=== PATIENT | female | born 1960 | race African-American/Black ===

== ENCOUNTER 2017-08-20 11:54 | Inpatient (IN) | payer MEDICAID ==
[~2017-08-20] VITALS: Ht 162.6 cm; Wt 65.8 kg
[~2017-08-20 11:54] MED LIST: INSULIN; METF-416 PO
[2017-08-20] MEDS ORDERED: NITROGLYCERIN OINT 1GM/INCH UDPKT TD STA (12:24)
[2017-08-20] MEDS ORDERED: ONDANSETRON HCL 4MG/2ML INJ IV STA (12:24)
[2017-08-20] MEDS ORDERED: MORPHINE SULFATE 4 MG/ML CPJ (NOT FOR IM USE) IV STA (12:24)
[2017-08-20] MEDS ORDERED: ASPIRIN 81MG TABLET PO STA (12:24)
[2017-08-20 12:31] LABS: BASOPHILS % 0.6 % (0.0-2.0); EOSINOPHILS % 2.4 % (0.0-5.0); HEMATOCRIT. 37.2 % (36.0-48.0); HEMOGLOBIN. 11.9 g/dL (12.0-16.0); LYMPHOCYTES % 46.9 % (20.0-50.0); MEAN CORPUSCULAR HEMOGLOBIN 23.1 pg (28.0-32.0); MEAN CORPUSCULAR VOLUME 71.9 fL (81.0-99.0); MEAN PLATELET VOLUME 7.9 fl (7.4-10.4); NEUTROPHILS % 42.1 % (40.0-76.0); PLATELET 228 x1000/uL (130-400); RED BLOOD CELL COUNT 5.17 mill/uL (4.2-5.4)
[2017-08-20 12:39] LABS: PARTIAL THROMBOPLASTIN TIME 25.7 sec (23.4-31.0)
[2017-08-20 12:47] LABS: CHLORIDE 102 mEq/L (98-107); CREATINE KINASE 70 IU/L (26-192)
[2017-08-20 12:52] LABS: CREATINE KINASE MB FRACTION 1.1 ng/mL (0.5-3.6)
[2017-08-20] MEDS ORDERED: HYDROCODONE/ACETAMINOPHEN 5/325MG TABLET PO PRN (13:00)
[2017-08-20] MEDS ORDERED: LORAZEPAM 2MG/ML CPJ IV PRN (13:00)
[2017-08-20] MEDS ORDERED: IPRATROPIUM/ALBUTEROL 0.5-3(2.5)MG/3ML NEB INH PRN (13:00)
[2017-08-20] MEDS ORDERED: MORPHINE SULFATE 4 MG/ML CPJ (NOT FOR IM USE) IV PRN (13:00)
[2017-08-20] MEDS ORDERED: ONDANSETRON HCL 4MG/2ML INJ IV PRN (13:00)
[2017-08-20] MEDS ORDERED: MAGNESIUM/ALUMINUM HYDROXIDE/SIMETHICONE 30ML UDC PO PRN (13:00)
[2017-08-20] MEDS ORDERED: NA PHOS,M-B/NA PHOS,DI-BA ENEMA 118ML PR PRN (13:00)
[2017-08-20] MEDS ORDERED: CLONIDINE 0.1MG TABLET PO PRN (13:00)
[2017-08-20] MEDS ORDERED: DIPHENHYDRAMINE 50MG/ML VIAL IV PRN (13:00)
[2017-08-20] MEDS ORDERED: GUAIFENESIN 200MG/10ML SUGAR FREE UDC PO PRN (13:00)
[2017-08-20] MEDS ORDERED: ACETAMINOPHEN 325MG TABLET PO PRN (13:00)
[2017-08-20] MEDS ORDERED: DOCUSATE SODIUM 100MG CAPSULE PO PRN (13:00)
[2017-08-20] MEDS ORDERED: INSULIN REGULAR (HUMULIN R) 300UNITS/3ML IV ONE (13:15)
[2017-08-20 16:25] LABS: CHLORIDE 103 mEq/L (98-107)
[2017-08-20] MEDS ORDERED: LISINOPRIL 5MG TABLET PO SCH (18:00)
[2017-08-20] MEDS ORDERED: ENOXAPARIN 40MG/0.4ML SYR SUBCUT SCH (20:00)
[2017-08-20 22:30] VITALS: BP 117/72
[2017-08-20] MEDS: AMLODIPINE 2.5MG TABLET PO SCH (22:30)
[2017-08-20 23:05] VITALS: BP 117/72
[2017-08-20] MEDS ORDERED: PIRO20CA PO (23:38)
[2017-08-20] MEDS ORDERED: PRAV40TA PO (23:38)
[2017-08-20] MEDS ORDERED: SITA100T11 PO (23:38)
[2017-08-20] MEDS ORDERED: GLIP5TAB12 PO (23:38)
[2017-08-20] MEDS ORDERED: OXYB5TAB11 PO (23:38)
[2017-08-20] MEDS ORDERED: SERT50TA PO (23:38)
[2017-08-20] MEDS ORDERED: THIA100T13 PO (23:38)
[2017-08-20] MEDS ORDERED: MEGE40TA27 * (23:38)
[2017-08-20] MEDS ORDERED: BUSP30TA2 PO (23:38)
[2017-08-20] MEDS ORDERED: INSU100I28 SQ (23:41)
[2017-08-21] VITALS: BP 106/76
[2017-08-21 04:00] VITALS: BP 104/71
[2017-08-21 07:02] LABS: BASOPHILS % 0.4 % (0.0-2.0); HEMATOCRIT. 36.9 % (36.0-48.0); HEMOGLOBIN. 11.7 g/dL (12.0-16.0); LYMPHOCYTES % 52.1 % (20.0-50.0); MEAN CORPUSCULAR HEMOGLOBIN 22.7 pg (28.0-32.0); MEAN CORPUSCULAR VOLUME 71.7 fL (81.0-99.0); MEAN PLATELET VOLUME 8.5 fl (7.4-10.4); MONOCYTES % 9.5 % (2.0-8.0); PLATELET 238 x1000/uL (130-400); RED BLOOD CELL COUNT 5.16 mill/uL (4.2-5.4); RED CELL DISTRIBUTION WIDTH 14.8 % (11.6-14.6)
[2017-08-21 07:14] LABS: CHLORIDE 100 mEq/L (98-107)
[2017-08-21 07:16] LABS: *AMPHETAMINES SCREEN URINE NEGATIVE (NEGATIVE); *BARBITURATES SCREEN URINE NEGATIVE (NEGATIVE); *BENZODIAZEPINES SCREEN URINE NEGATIVE (NEGATIVE); *COCAINE SCREEN URINE NEGATIVE (NEGATIVE); CANNABINOID URINE SCREEN NEGATIVE (NEGATIVE); METHADONE URINE SCREEN NEGATIVE (NEGATIVE); OPIATES URINE SCREEN PRESUMTIVE POSITIVE (NEGATIVE); PHENCYCLIDINE URINE SCREEN NEGATIVE (NEGATIVE)
[2017-08-21 07:21] LABS: HDL CHOLESTEROL 47 mg/dL (40-59); LDL CHOLESTEROL 124 mg/dL (5-100)
[2017-08-21] MEDS: AMLODIPINE 2.5MG TABLET PO SCH (08:53)
[2017-08-21] MEDS ORDERED: ASPIRIN 81MG EC TABLET PO SCH (09:00)
[2017-08-21] MEDS ORDERED: INFLUENZA VIRUS VACCINE(AFLURIA) 0.5ML SYR IM ONE (10:00)
[2017-08-21] MEDS ORDERED: PNEUMOCOCCAL 23-VAL P-SAC VAC 0.5 ML IM ONE (11:00)
[2017-08-21 11:07] VITALS: BP 117/80
== END 2017-08-21 14:24 | disposition home or self-care (01) | DRG 203 ==
LOC: ER 12:03 → EDBEDREQTM 12:30 → EDBEDREQ 12:30 → 5WST 12:55 → ENRESERV 21:05
PROVIDERS: ADMIT Internal Medicine; ATTEND Internal Medicine
DX: M94.0 Chondrocostal junction syndrome [Tietze] (principal); E11.65 Type 2 diabetes mellitus with hyperglycemia; I10 Essential (primary) hypertension; R07.9 Chest pain, unspecified; I25.10 Atherosclerotic heart disease of native coronary artery without angina pectoris; F17.200 Nicotine dependence, unspecified, uncomplicated; F20.9 Schizophrenia, unspecified; J44.9 Chronic obstructive pulmonary disease, unspecified; Z79.84 Long term (current) use of oral hypoglycemic drugs; Z79.899 Other long term (current) drug therapy; Z71.6 Tobacco abuse counseling
CPT/HCPCS: 36415; 71045; 80048; 80061; 80305; 82550; 82553; 82962; 83036; 83735; 83880; 84443; 84484; 90686; 90732; 93005; 93306; 96374; 96375; 99291; J1650; J1815; J2060; J2270; J2405

== ENCOUNTER 2018-03-23 07:57 | Emergency (ER) | payer MEDICAID ==
[~2018-03-23] VITALS: Ht 170.2 cm; Wt 68.2 kg
[~2018-03-23 07:57] MED LIST changes: +BUSP30TA2 PO; +GLIP5TAB12 PO; +INSU100I28 SQ; -INSULIN; +MEGE40TA27 *; -METF-416 PO; +METF10004 PO; +OXYB5TAB11 PO; +PIRO20CA PO; +PRAV40TA PO; +SERT50TA PO; +SITA100T11 PO; +THIA100T13 PO
[2018-03-23] MEDS ORDERED: SODIUM CHLORIDE 0.9% 1,000 ML IV ONE ×2 (08:54→12:15)
[2018-03-23] MEDS ORDERED: KETOROLAC 30MG/ML VIAL IV STA (08:54)
[2018-03-23 09:41] LABS: BASOPHILS % 0.5 % (0.0-2.0); EOSINOPHILS % 2.2 % (0.0-5.0); HEMATOCRIT. 35.7 % (36.0-48.0); HEMOGLOBIN. 11.3 g/dL (12.0-16.0); LYMPHOCYTES % 38.8 % (20.0-50.0); MEAN CORPUSCULAR HEMOGLOBIN 22.6 pg (28.0-32.0); MEAN CORPUSCULAR VOLUME 71.2 fL (81.0-99.0); MEAN PLATELET VOLUME 8.3 fl (7.4-10.4); MONOCYTES % 6.4 % (2.0-8.0); NEUTROPHILS % 52.1 % (40.0-76.0); PLATELET 221 x1000/uL (130-400); RED BLOOD CELL COUNT 5.02 mill/uL (4.2-5.4); RED CELL DISTRIBUTION WIDTH 14.5 % (11.6-14.6)
[2018-03-23 09:44] LABS: CHLORIDE 101 mEq/L (98-107)
[2018-03-23 09:50] LABS: PHOSPHORUS 3.6 mg/dL (2.5-4.9)
[2018-03-23 09:58] LABS: CLARITY URINE CLEAR (CLEAR); COLOR URINE YELLOW (YELLOW); KETONES URINE NEGATIVE (NEGATIVE); LEUKOCYTE ESTERASE URINE TRACE (NEGATIVE); NITRITE URINE NEGATIVE (NEGATIVE); OCCULT BLOOD URINE TRACE (NEGATIVE); PROTEIN URINE NEGATIVE (NEGATIVE); SPECIFIC GRAVITY URINE 1.024 (1.005-1.030); UROBILINOGEN URINE 0.2 E.U./dL (0.2-1.0)
[2018-03-23] MEDS ORDERED: INSULIN REGULAR (HUMULIN R) 300UNITS/3ML SUBCUT ONE (10:45)
[2018-03-23 14:00] VITALS: BP 138/82
== END 2018-03-23 14:50 | disposition home or self-care (01) ==
LOC: ER 08:23
DX: E11.65 Type 2 diabetes mellitus with hyperglycemia (principal); F17.200 Nicotine dependence, unspecified, uncomplicated; N39.0 Urinary tract infection, site not specified; Z79.4 Long term (current) use of insulin; Z79.899 Other long term (current) drug therapy
CPT/HCPCS: 36415; 80053; 81003; 82962; 83690; 83735; 84100; 85025; 85610; 87077; 87086; 87186; 96361; 96372; 96374; 99285; J1815; J1885; J7030; Z7610

== ENCOUNTER 2018-04-27 12:42 | Inpatient (IN) | payer MEDICAID ==
[~2018-04-27] VITALS: Ht 167.6 cm; Wt 68.0 kg
[2018-04-27] MEDS ORDERED: SODIUM CHLORIDE 0.9% 1,000 ML IV ONE (14:19)
[2018-04-27 15:15] LABS: HEMATOCRIT. 42.5 % (36.0-48.0); HEMOGLOBIN. 13.4 g/dL (12.0-16.0); PLATELET 191 x1000/uL (130-400); RED BLOOD CELL COUNT 5.82 mill/uL (4.2-5.4); RED CELL DISTRIBUTION WIDTH 14.8 % (11.6-14.6)
[2018-04-27 15:19] LABS: CHLORIDE 90 mEq/L (98-107); INR 1.3; PROTHROMBIN TIME 13.4 sec (9.1-11.1)
[2018-04-27 15:27] LABS: ETHANOL BLOOD < 10 mg/dL
[2018-04-27 15:56] LABS: PLATELET ESTIMATE NORMAL
[2018-04-27] MEDS ORDERED: SODIUM CHLORIDE 0.9% 1000ML BAG (SEPSIS BOLUS) IV ONE (16:45)
[2018-04-27] MEDS ORDERED: VANCOMYCIN 1 G PREMIX 200 ML IV ONE (16:45)
[2018-04-27] MEDS ORDERED: PIPERACILLIN/TAZ 3.375G PREMIX 50 ML IV ONE (16:45)
[2018-04-27] MEDS ORDERED: INSULIN REGULAR (DRIP) 100 UNITS in SODIUM CHLORIDE 0.9% 99 ML IV NR ×2 (16:46→17:15)
[2018-04-27 16:47] LABS: CLARITY URINE CLOUDY (CLEAR); COLOR URINE YELLOW (YELLOW); KETONES URINE 2+ (NEGATIVE); LEUKOCYTE ESTERASE URINE NEGATIVE (NEGATIVE); NITRITE URINE NEGATIVE (NEGATIVE); OCCULT BLOOD URINE 2+ (NEGATIVE); PROTEIN URINE 2+ (NEGATIVE); SPECIFIC GRAVITY URINE 1.026 (1.005-1.030); UROBILINOGEN URINE 0.2 E.U./dL (0.2-1.0)
[2018-04-27 17:06] LABS: PHOSPHORUS 2.4 mg/dL (2.5-4.9)
[2018-04-27 18:52] LABS: BG BASE EXCESS -10.9 mmol/L (-2.0-2.0); BG CARBOXYHEMOGLOBIN 0.9 % (0.5-1.5); BG DEOXYHEMOGLOBIN 6.6 % (0.0-5.0); BG FRACTION INSPIRED OXYGEN 21; BG HCO3 ACT 12.4 mmol/L (22.0-26.0); BG METHEMOGLOBIN 0.6 % (0.0-1.5); BG OXYGEN SATURATION 93.3 % (92.0-98.5); BG OXYHEMOGLOBIN 91.9 % (94.0-97.0); BG PCO2 22.1 mmHg (35.0-45.0); BG PH 7.366 (7.350-7.450); BG PO2 66.6 mmHg (75.0-100.0); BG SAMPLE SITE RIGHT BRACHIAL; BG VENT MODE T-TUBE
[2018-04-27] MEDS: SODIUM CHLORIDE 0.9% 1,000 ML IV SCH (19:56)
[2018-04-27] MEDS ORDERED: VANCOMYCIN 1 G PREMIX 200 ML IV SCH (20:00)
[2018-04-27] MEDS ORDERED: INSULIN REGULAR (DRIP) 100 UNITS in SODIUM CHLORIDE 0.9% 100 ML IV ONE (20:00)
[2018-04-27] MEDS ORDERED: DEXTROSE 50% WATER 50ML SYRINGE IV PRN ×2 (22:30)
[2018-04-27 23:00] VITALS: BP 110/66
[2018-04-27] MEDS: BLOOD SUGAR DIAGNOSTIC STRIP TEST SCH (23:00)
[2018-04-27] MEDS ORDERED: INSULIN REGULAR (DRIP) 100 UNITS in SODIUM CHLORIDE 0.9% 100 ML IV SCH (23:00)
[2018-04-28] VITALS (32 sets, daily range): BP systolic 101–211; BP diastolic 52–106
[2018-04-28] MEDS: BLOOD SUGAR DIAGNOSTIC STRIP TEST SCH ×15 (01:00→20:05)
[2018-04-28] MEDS: PIPERACILLIN/TAZ 3.375G PREMIX 50 ML IV SCH ×5 (02:54→23:58)
[2018-04-28] MEDS: SODIUM CHLORIDE 0.9% 1,000 ML IV SCH ×5 (02:54→20:10)
[2018-04-28] MEDS ORDERED: SODIUM CHLORIDE 0.9% 1,000 ML IV SCH (03:15)
[2018-04-28] MEDS: DIPHENHYDRAMINE 50MG/ML VIAL IV PRN ×2 (04:08→20:36)
[2018-04-28] MEDS: INSULIN REGULAR (DRIP) 100 UNITS in SODIUM CHLORIDE 0.9% 99 ML IV SCH ×2 (04:15→07:18)
[2018-04-28] MEDS: PANTOPRAZOLE SODIUM 40 MG/VIAL IV SCH (04:23)
[2018-04-28] MEDS: DEXT 5%/0.45% NACL 1000ML 1,000 ML IV SCH ×2 (04:24→08:15)
[2018-04-28] MEDS: LORAZEPAM 2MG/ML CPJ IV PRN ×4 (06:08→21:54)
[2018-04-28 06:42] LABS: PHOSPHORUS 1.4 mg/dL (2.5-4.9)
[2018-04-28 07:25] LABS: HEMATOCRIT. 36.1 % (36.0-48.0); HEMOGLOBIN. 11.9 g/dL (12.0-16.0); MEAN CORPUSCULAR VOLUME 70.1 fL (81.0-99.0); MEAN PLATELET VOLUME 9.2 fl (7.4-10.4); PLATELET 172 x1000/uL (130-400); RED BLOOD CELL COUNT 5.16 mill/uL (4.2-5.4); RED CELL DISTRIBUTION WIDTH 14.5 % (11.6-14.6)
[2018-04-28 09:03] LABS: *AMPHETAMINES SCREEN URINE NEGATIVE (NEGATIVE); *BARBITURATES SCREEN URINE NEGATIVE (NEGATIVE); *BENZODIAZEPINES SCREEN URINE NEGATIVE (NEGATIVE); *COCAINE SCREEN URINE NEGATIVE (NEGATIVE); CANNABINOID URINE SCREEN NEGATIVE (NEGATIVE); METHADONE URINE SCREEN NEGATIVE (NEGATIVE)
[2018-04-28 09:04] LABS: OPIATES URINE SCREEN NEGATIVE (NEGATIVE); PHENCYCLIDINE URINE SCREEN NEGATIVE (NEGATIVE)
[2018-04-28] MEDS ORDERED: VANCOMYCIN 1 G PREMIX 200 ML IV SCH (10:00)
[2018-04-28 10:57] LABS: PLATELET ESTIMATE NORMAL
[2018-04-28] MEDS ORDERED: DEXTROSE 50% WATER 50ML SYRINGE IV PRN (13:30)
[2018-04-28] MEDS: GENTAMICIN 120MG PREMIX 100 ML IV SCH (13:53)
[2018-04-28] MEDS: INSULIN LISPRO 100 UNITS/ML SUBCUT SCH ×3 (13:54→20:26)
[2018-04-28] MEDS ORDERED: POTASSIUM PHOS,M-BASIC-D-BASIC 30 MMOL in DEXT 5% WATER 500 ML IV NR (14:30)
[2018-04-28] MEDS: INSULIN GLARGINE UD 100 UNITS/ML SYR SUBCUT SCH (15:28)
[2018-04-28] MEDS: METOPROLOL TARTRATE 25MG TABLET PO SCH (20:07)
[2018-04-28 20:23] LABS: T4 FREE 1.22 ng/dL (0.76-1.46)
[2018-04-28] MEDS ORDERED: KCL 20MEQ/100ML PREMIX 100 ML IV NR (21:00)
[2018-04-28] MEDS ORDERED: HALOPERIDOL LACTATE 5MG/ML VIAL IM PRN (22:00)
[2018-04-28] MEDS: HALOPERIDOL LACTATE 5MG/ML VIAL IM PRN (22:25)
[2018-04-29] VITALS (14 sets, daily range): BP systolic 109–207; BP diastolic 65–109
[2018-04-29] MEDS: BLOOD SUGAR DIAGNOSTIC STRIP TEST SCH ×6 (01:30→21:34)
[2018-04-29] MEDS: GENTAMICIN 120MG PREMIX 100 ML IV SCH (02:21)
[2018-04-29] MEDS: LORAZEPAM 2MG/ML CPJ IV PRN ×4 (02:22→22:13)
[2018-04-29] MEDS: SODIUM CHLORIDE 0.9% 1,000 ML IV SCH ×3 (02:34→17:45)
[2018-04-29] MEDS: DIPHENHYDRAMINE 50MG/ML VIAL IV PRN (02:38)
[2018-04-29] MEDS: INSULIN LISPRO 100 UNITS/ML SUBCUT SCH ×6 (02:39→21:30)
[2018-04-29] MEDS: PIPERACILLIN/TAZ 3.375G PREMIX 50 ML IV SCH ×3 (06:46→18:23)
[2018-04-29 07:18] LABS: BASOPHILS % 0.3 % (0.0-2.0); HEMATOCRIT. 31.4 % (36.0-48.0); HEMOGLOBIN. 10.2 g/dL (12.0-16.0); LYMPHOCYTES % 8.8 % (20.0-50.0); MEAN CORPUSCULAR HEMOGLOBIN 22.5 pg (28.0-32.0); MEAN CORPUSCULAR VOLUME 69.4 fL (81.0-99.0); MEAN PLATELET VOLUME 8.9 fl (7.4-10.4); NEUTROPHILS % 84.9 % (40.0-76.0); PLATELET 125 x1000/uL (130-400); RED BLOOD CELL COUNT 4.53 mill/uL (4.2-5.4); RED CELL DISTRIBUTION WIDTH 14.5 % (11.6-14.6)
[2018-04-29] MEDS: HALOPERIDOL LACTATE 5MG/ML VIAL IM PRN ×2 (07:43→13:26)
[2018-04-29 08:27] LABS: CHLORIDE 111 mEq/L (98-107)
[2018-04-29 08:35] LABS: PHOSPHORUS 1.9 mg/dL (2.5-4.9)
[2018-04-29] MEDS: METOPROLOL TARTRATE 25MG TABLET PO SCH ×2 (09:00→21:00)
[2018-04-29] MEDS: PANTOPRAZOLE SODIUM 40 MG/VIAL IV SCH (09:58)
[2018-04-29] MEDS: INSULIN GLARGINE UD 100 UNITS/ML SYR SUBCUT SCH (10:40)
[2018-04-29] MEDS: HYDRALAZINE 20MG/ML VIAL IV PRN (10:55)
[2018-04-29] MEDS ORDERED: POTASSIUM PHOS,M-BASIC-D-BASIC 20 MMOL in DEXT 5% WATER 243.3333 ML IV SCH (11:30)
[2018-04-29] MEDS ORDERED: THIAMINE HCL 100 MG in SODIUM CHLORIDE 0.9% 50 ML IV SCH (15:30)
[2018-04-29] MEDS: GENTAMICIN 100MG PREMIX 50 ML IV SCH (22:13)
[2018-04-30] VITALS (13 sets, daily range): BP systolic 128–176; BP diastolic 70–136
[2018-04-30 00:07] LABS: AMMONIA <10 uMol/L (<32)
[2018-04-30] MEDS: INSULIN LISPRO 100 UNITS/ML SUBCUT SCH ×6 (01:30→22:38)
[2018-04-30] MEDS: HALOPERIDOL LACTATE 5MG/ML VIAL IM PRN ×3 (01:33→14:10)
[2018-04-30] MEDS: BLOOD SUGAR DIAGNOSTIC STRIP TEST SCH ×6 (01:37→22:20)
[2018-04-30] MEDS: SODIUM CHLORIDE 0.9% 1,000 ML IV SCH ×3 (04:55→20:08)
[2018-04-30] MEDS: LORAZEPAM 2MG/ML CPJ IV PRN ×3 (06:24→18:53)
[2018-04-30] MEDS: DIPHENHYDRAMINE 50MG/ML VIAL IV PRN ×3 (08:18→18:53)
[2018-04-30] MEDS: ONDANSETRON HCL 4MG/2ML INJ IV PRN ×2 (08:18→13:13)
[2018-04-30] MEDS ORDERED: THIAMINE HCL 100MG TABLET PO SCH (09:00)
[2018-04-30] MEDS: METOPROLOL TARTRATE 25MG TABLET PO SCH ×2 (09:00→21:00)
[2018-04-30] MEDS: PANTOPRAZOLE SODIUM 40 MG/VIAL IV SCH (09:21)
[2018-04-30 09:41] LABS: HEMOGLOBIN. 11.2 g/dL (12.0-16.0); MEAN CORPUSCULAR HEMOGLOBIN 22.6 pg (28.0-32.0); MEAN CORPUSCULAR VOLUME 70.3 fL (81.0-99.0); MEAN PLATELET VOLUME 8.4 fl (7.4-10.4); PLATELET 101 x1000/uL (130-400); RED BLOOD CELL COUNT 4.98 mill/uL (4.2-5.4); RED CELL DISTRIBUTION WIDTH 15.1 % (11.6-14.6)
[2018-04-30 10:01] LABS: CHLORIDE 112 mEq/L (98-107)
[2018-04-30] MEDS: INSULIN GLARGINE UD 100 UNITS/ML SYR SUBCUT SCH (10:50)
[2018-04-30] MEDS: GENTAMICIN 100MG PREMIX 50 ML IV SCH (16:00)
[2018-04-30] MEDS ORDERED: POTASSIUM PHOS,M-BASIC-D-BASIC 30 MMOL in DEXT 5% WATER 500 ML IV NR (18:00)
[2018-04-30 20:57] LABS: BG BASE EXCESS -8.8 mmol/L (-2.0-2.0); BG CARBOXYHEMOGLOBIN 1.1 % (0.5-1.5); BG DEOXYHEMOGLOBIN 14.9 % (0.0-5.0); BG FRACTION INSPIRED OXYGEN 32; BG HCO3 ACT 16.5 mmol/L (22.0-26.0); BG METHEMOGLOBIN 0.2 % (0.0-1.5); BG OXYGEN SATURATION 84.9 % (92.0-98.5); BG OXYHEMOGLOBIN 83.8 % (94.0-97.0); BG PCO2 33.8 mmHg (35.0-45.0); BG PH 7.307 (7.350-7.450); BG PO2 50.9 mmHg (75.0-100.0); BG SAMPLE SITE RIGHT BRACHIAL; BG TOTAL HEMOGLOBIN 11.7 g/dL (12.0-18.0); BG VENT MODE NASAL CANNULA
[2018-04-30] MEDS ORDERED: RISPERIDONE 1MG TABLET PO SCH (21:00)
[2018-04-30] MEDS ORDERED: FUROSEMIDE 40MG/4ML VIAL IVP NR (21:15)
[2018-04-30 21:58] LABS: PLATELET ESTIMATE DECREASED
[2018-04-30] MEDS ORDERED: ENOXAPARIN 60MG/0.6ML SYR SUBCUT SCH (23:00)
[2018-04-30] MEDS ORDERED: VERAPAMIL HCL 2.5 MG/1 ML 2ML VIAL IV PRN (23:00)
[2018-05-01] VITALS (63 sets, daily range): BP systolic 66–162; BP diastolic 27–106
[2018-05-01] MEDS: IPRATROPIUM/ALBUTEROL 0.5-3(2.5)MG/3ML NEB HHN SCH ×2 (00:52→08:43)
[2018-05-01] MEDS: BLOOD SUGAR DIAGNOSTIC STRIP TEST SCH ×6 (01:30→21:08)
[2018-05-01] MEDS: INSULIN LISPRO 100 UNITS/ML SUBCUT SCH ×6 (02:43→21:12)
[2018-05-01] MEDS ORDERED: GENTAMICIN 100MG PREMIX 50 ML IV SCH (04:00)
[2018-05-01 06:23] LABS: HEMATOCRIT. 35.6 % (36.0-48.0); HEMOGLOBIN. 11.2 g/dL (12.0-16.0); MEAN CORPUSCULAR HEMOGLOBIN 22.7 pg (28.0-32.0); MEAN CORPUSCULAR VOLUME 71.9 fL (81.0-99.0); PLATELET 104 x1000/uL (130-400); RED BLOOD CELL COUNT 4.95 mill/uL (4.2-5.4); RED CELL DISTRIBUTION WIDTH 16.2 % (11.6-14.6)
[2018-05-01 06:56] LABS: PHOSPHORUS 8.6 mg/dL (2.5-4.9)
[2018-05-01 08:02] LABS: BG BASE EXCESS -8.3 mmol/L (-2.0-2.0); BG DEOXYHEMOGLOBIN 0.8 % (0.0-5.0); BG HCO3 ACT 25.3 mmol/L (22.0-26.0); BG METHEMOGLOBIN 0.3 % (0.0-1.5); BG OXYGEN SATURATION 99.2 % (92.0-98.5); BG OXYHEMOGLOBIN 97.9 % (94.0-97.0); BG PCO2 111.4 mmHg (35.0-45.0); BG PH 6.974 (7.350-7.450); BG PO2 169.8 mmHg (75.0-100.0); BG SAMPLE SITE RIGHT BRACHIAL; BG TOTAL HEMOGLOBIN 11.7 g/dL (12.0-18.0); BG VENT MODE MASK - SIMPLE
[2018-05-01] MEDS ORDERED: SODIUM BICARBONATE 8.4% 1 MEQ/ML 50ML SYR IV ONE (08:27)
[2018-05-01] MEDS ORDERED: SODIUM BICARBONATE 8.4% 1 MEQ/ML 50ML SYR IV SCH (08:30)
[2018-05-01] MEDS: METOPROLOL TARTRATE 25MG TABLET PO SCH ×2 (09:00→20:44)
[2018-05-01] MEDS: SODIUM CHLORIDE 0.9% 1,000 ML IV SCH ×2 (09:22→12:22)
[2018-05-01 10:00] LABS: BG BASE EXCESS -3.9 mmol/L (-2.0-2.0); BG CARBOXYHEMOGLOBIN 0.6 % (0.5-1.5); BG DEOXYHEMOGLOBIN 2.4 % (0.0-5.0); BG HCO3 ACT 21.9 mmol/L (22.0-26.0); BG METHEMOGLOBIN 0.2 % (0.0-1.5); BG OXYGEN SATURATION 97.6 % (92.0-98.5); BG OXYHEMOGLOBIN 96.8 % (94.0-97.0); BG PCO2 42.3 mmHg (35.0-45.0); BG PH 7.331 (7.350-7.450); BG PO2 84.7 mmHg (75.0-100.0); BG SAMPLE SITE RIGHT BRACHIAL; BG TIDAL VOLUME(mL) 500 mL; BG TOTAL HEMOGLOBIN 11.8 g/dL (12.0-18.0); BG VENT MODE VENT - A/C; BG VENT RATE 14 set
[2018-05-01] MEDS ORDERED: SODIUM POLYSTYRENE SULFONATE 15 G/60 ML BOT NG SCH (10:00)
[2018-05-01] MEDS ORDERED: CEFAZOLIN 1000MG PREMIX 50 ML IV SCH (10:00)
[2018-05-01 10:20] LABS: AMMONIA 28 uMol/L (<32)
[2018-05-01] MEDS ORDERED: IPRATROPIUM/ALBUTEROL 0.5-3(2.5)MG/3ML NEB HHN PRN (10:30)
[2018-05-01] MEDS: PROPOFOL 10MG/ML 100ML 100 ML IV PRN ×2 (10:34→18:23)
[2018-05-01] MEDS: PANTOPRAZOLE SODIUM 40 MG/VIAL IV SCH (11:14)
[2018-05-01] MEDS: THIAMINE HCL 100MG TABLET NG SCH (11:14)
[2018-05-01] MEDS: INSULIN GLARGINE UD 100 UNITS/ML SYR SUBCUT SCH (11:15)
[2018-05-01] MEDS ORDERED: IPRATROPIUM/ALBUTEROL 0.5-3(2.5)MG/3ML NEB HHN SCH (12:00)
[2018-05-01 12:25] LABS: BETA HYDROXYBUTYRATE 0.3 mMol/L (0.0-0.3)
[2018-05-01] MEDS: METRONIDAZOLE 500 MG PREMIX 100 ML IV SCH ×2 (12:41→20:44)
[2018-05-01] MEDS ORDERED: NOREPINEPHRINE 4 MG in DEXT 5% WATER 246 ML IV PRN (12:45)
[2018-05-01] MEDS: SODIUM CHLORIDE 0.45% 1,000 ML IV SCH (12:58)
[2018-05-01] MEDS ORDERED: VANCOMYCIN 1250MG in DEXTROSE 5% WATER 250ML IV SCH (13:00)
[2018-05-01] MEDS ORDERED: CEFEPIME 1,000 MG in DEXTROSE 5% WATER 50 ML IV SCH (13:00)
[2018-05-01] MEDS ORDERED: ALBUTEROL (0.083%) 2.5MG/3ML NEB HHN PRN (13:15)
[2018-05-01] MEDS ORDERED: SODIUM POLYSTYRENE SULFONATE 15 G/60 ML BOT NG NR (13:30)
[2018-05-01 13:47] LABS: PLATELET ESTIMATE DECREASED
[2018-05-01] MEDS ORDERED: NORMAL SALINE 0.9% 10 ML SYR ONE (14:36)
[2018-05-01] MEDS ORDERED: ETOMIDATE 2MG/ML 10ML VIAL IV ONE (14:36)
[2018-05-01] MEDS ORDERED: VECURONIUM BROMIDE 10 MG/VIAL IV ONE (14:36)
[2018-05-01] MEDS: CEFEPIME 1,000 MG in DEXTROSE 5% WATER 50 ML IV SCH (14:44)
[2018-05-01] MEDS: ALBUTEROL (0.083%) 2.5MG/3ML NEB HHN SCH ×2 (14:54→20:20)
[2018-05-01] MEDS: RISPERIDONE 1MG TABLET NG SCH (20:44)
[2018-05-02] VITALS (94 sets, daily range): BP systolic 93–164; BP diastolic 55–119
[2018-05-02] MEDS: SODIUM CHLORIDE 0.45% 1,000 ML IV SCH ×2 (00:29→09:24)
[2018-05-02] MEDS: PROPOFOL 10MG/ML 100ML 100 ML IV PRN ×5 (00:30→23:40)
[2018-05-02] MEDS: ALBUTEROL (0.083%) 2.5MG/3ML NEB HHN SCH ×6 (00:36→20:12)
[2018-05-02] MEDS: ACETYLCYSTEINE 100MG/ML 10% VIAL 4ML INH SCH ×3 (00:36→15:55)
[2018-05-02] MEDS: BLOOD SUGAR DIAGNOSTIC STRIP TEST SCH ×6 (00:45→23:55)
[2018-05-02] MEDS: INSULIN LISPRO 100 UNITS/ML SUBCUT SCH ×5 (00:49→23:58)
[2018-05-02 05:16] LABS: HEMATOCRIT. 29.1 % (36.0-48.0); HEMOGLOBIN. 9.5 g/dL (12.0-16.0); MEAN CORPUSCULAR HEMOGLOBIN 22.6 pg (28.0-32.0); MEAN CORPUSCULAR VOLUME 69.4 fL (81.0-99.0); MEAN PLATELET VOLUME 8.6 fl (7.4-10.4); PLATELET 103 x1000/uL (130-400); RED CELL DISTRIBUTION WIDTH 15.3 % (11.6-14.6)
[2018-05-02 05:43] LABS: CHLORIDE 113 mEq/L (98-107)
[2018-05-02 05:52] LABS: PHOSPHORUS 1.9 mg/dL (2.5-4.9)
[2018-05-02 06:54] LABS: PLATELET ESTIMATE DECREASED
[2018-05-02] MEDS ORDERED: LIDOCAINE HCL 1% 10 MG/ML 10ML VIAL ONE (07:02)
[2018-05-02 07:49] LABS: BG BASE EXCESS -2.4 mmol/L (-2.0-2.0); BG CARBOXYHEMOGLOBIN 0.2 % (0.5-1.5); BG DEOXYHEMOGLOBIN 2.2 % (0.0-5.0); BG HCO3 ACT 21.6 mmol/L (22.0-26.0); BG METHEMOGLOBIN 0.3 % (0.0-1.5); BG OXYGEN SATURATION 97.8 % (92.0-98.5); BG OXYHEMOGLOBIN 97.3 % (94.0-97.0); BG PCO2 33.8 mmHg (35.0-45.0); BG PH 7.423 (7.350-7.450); BG PO2 105.8 mmHg (75.0-100.0); BG SAMPLE SITE RIGHT BRACHIAL; BG TIDAL VOLUME(mL) 500 mL; BG TOTAL HEMOGLOBIN 9.2 g/dL (12.0-18.0); BG VENT MODE VENT - A/C; BG VENT RATE 14 set
[2018-05-02] MEDS ORDERED: POTASSIUM PHOS,M-BASIC-D-BASIC 15 MMOL in DEXT 5% WATER 245 ML IV SCH (09:00)
[2018-05-02] MEDS ORDERED: ENOXAPARIN 40MG/0.4ML SYR SUBCUT SCH (09:00)
[2018-05-02] MEDS: METRONIDAZOLE 500 MG PREMIX 100 ML IV SCH ×2 (09:21→20:28)
[2018-05-02] MEDS: PANTOPRAZOLE SODIUM 40 MG/VIAL IV SCH (09:21)
[2018-05-02] MEDS: RISPERIDONE 1MG TABLET NG SCH ×2 (09:22→20:28)
[2018-05-02] MEDS: METOPROLOL TARTRATE 25MG TABLET PO SCH ×2 (09:22→20:28)
[2018-05-02] MEDS: THIAMINE HCL 100MG TABLET NG SCH (09:22)
[2018-05-02] MEDS ORDERED: INSULIN GLARGINE UD 100 UNITS/ML SYR SUBCUT SCH (10:30)
[2018-05-02] MEDS ORDERED: LORAZEPAM 2MG/ML CPJ IV PRN (11:15)
[2018-05-02] MEDS: CEFEPIME 1,000 MG in DEXTROSE 5% WATER 50 ML IV SCH (12:43)
[2018-05-02] MEDS ORDERED: VANCOMYCIN 1 G PREMIX 200 ML IV SCH (13:00)
[2018-05-02] MEDS: ENOXAPARIN 40MG/0.4ML SYR SUBCUT SCH (18:01)
[2018-05-03] VITALS (99 sets, daily range): BP systolic 97–171; BP diastolic 54–101
[2018-05-03] MEDS: ACETYLCYSTEINE 100MG/ML 10% VIAL 4ML INH SCH ×3 (00:03→16:34)
[2018-05-03] MEDS: ALBUTEROL (0.083%) 2.5MG/3ML NEB HHN SCH ×6 (00:03→20:55)
[2018-05-03] MEDS: MIDAZOLAM HCL 50 MG in DEXTROSE 5% WATER 40 ML IV PRN ×2 (03:42→07:22)
[2018-05-03] MEDS: FENTANYL CITRATE/PF 500 MCG in SODIUM CHLORIDE 0.9% 40 ML IV PRN ×3 (03:42→23:47)
[2018-05-03] MEDS: BLOOD SUGAR DIAGNOSTIC STRIP TEST SCH ×4 (05:17→23:53)
[2018-05-03] MEDS: INSULIN LISPRO 100 UNITS/ML SUBCUT SCH ×4 (05:20→23:56)
[2018-05-03 05:31] LABS: HEMATOCRIT. 27.9 % (36.0-48.0); HEMOGLOBIN. 9.1 g/dL (12.0-16.0); MEAN CORPUSCULAR HEMOGLOBIN 22.2 pg (28.0-32.0); MEAN CORPUSCULAR VOLUME 68.5 fL (81.0-99.0); MEAN PLATELET VOLUME 8.5 fl (7.4-10.4); PLATELET 143 x1000/uL (130-400); RED BLOOD CELL COUNT 4.08 mill/uL (4.2-5.4); RED CELL DISTRIBUTION WIDTH 15.3 % (11.6-14.6)
[2018-05-03 05:47] LABS: CHLORIDE 110 mEq/L (98-107)
[2018-05-03 05:54] LABS: PHOSPHORUS 2.4 mg/dL (2.5-4.9)
[2018-05-03] MEDS ORDERED: VANCOMYCIN 1 G PREMIX 200 ML IV SCH (06:00)
[2018-05-03 08:14] LABS: PLATELET ESTIMATE NORMAL
[2018-05-03] MEDS: PANTOPRAZOLE SODIUM 40 MG/VIAL IV SCH (08:17)
[2018-05-03] MEDS: THIAMINE HCL 100MG TABLET NG SCH (08:18)
[2018-05-03] MEDS: METOPROLOL TARTRATE 25MG TABLET PO SCH ×2 (08:18→20:29)
[2018-05-03] MEDS: ENOXAPARIN 40MG/0.4ML SYR SUBCUT SCH (08:19)
[2018-05-03] MEDS: RISPERIDONE 1MG TABLET NG SCH ×2 (08:19→20:28)
[2018-05-03] MEDS: METRONIDAZOLE 500 MG PREMIX 100 ML IV SCH ×2 (08:23→20:28)
[2018-05-03] MEDS ORDERED: MAGNESIUM 2 G PREMIX 50 ML IV ONE (09:00)
[2018-05-03] MEDS ORDERED: MAGNESIUM SULFATE 2 GM in DEXTROSE 5% WATER 50 ML IV NR (10:30)
[2018-05-03] MEDS ORDERED: POTASSIUM PHOS,M-BASIC-D-BASIC 15 MMOL in DEXT 5% WATER 245 ML IV NR (11:00)
[2018-05-03] MEDS ORDERED: INSULIN GLARGINE UD 100 UNITS/ML SYR SUBCUT SCH (11:00)
[2018-05-03] MEDS: CEFEPIME 1,000 MG in DEXTROSE 5% WATER 50 ML IV SCH (12:58)
[2018-05-03] MEDS: SODIUM CHLORIDE 0.45% 1,000 ML IV SCH (17:43)
[2018-05-03] MEDS: ACETAMINOPHEN 325MG TABLET PO PRN (20:29)
[2018-05-04] VITALS (90 sets, daily range): BP systolic 95–163; BP diastolic 52–119
[2018-05-04] MEDS: ACETYLCYSTEINE 100MG/ML 10% VIAL 4ML INH SCH ×3 (00:34→15:49)
[2018-05-04] MEDS: ALBUTEROL (0.083%) 2.5MG/3ML NEB HHN SCH ×6 (00:34→19:58)
[2018-05-04] MEDS: MIDAZOLAM HCL 50 MG in DEXTROSE 5% WATER 40 ML IV PRN (02:14)
[2018-05-04 06:03] LABS: BASOPHILS % 0.1 % (0.0-2.0); EOSINOPHILS % 0.9 % (0.0-5.0); HEMATOCRIT. 29.4 % (36.0-48.0); HEMOGLOBIN. 9.4 g/dL (12.0-16.0); LYMPHOCYTES % 10.1 % (20.0-50.0); MEAN CORPUSCULAR HEMOGLOBIN 22.2 pg (28.0-32.0); MEAN CORPUSCULAR VOLUME 69.6 fL (81.0-99.0); MEAN PLATELET VOLUME 8.4 fl (7.4-10.4); MONOCYTES % 5.1 % (2.0-8.0); NEUTROPHILS % 83.8 % (40.0-76.0); PLATELET 184 x1000/uL (130-400); RED BLOOD CELL COUNT 4.23 mill/uL (4.2-5.4); RED CELL DISTRIBUTION WIDTH 15.3 % (11.6-14.6)
[2018-05-04] MEDS: BLOOD SUGAR DIAGNOSTIC STRIP TEST SCH ×4 (06:09→23:16)
[2018-05-04] MEDS: INSULIN LISPRO 100 UNITS/ML SUBCUT SCH ×4 (06:12→23:30)
[2018-05-04 08:05] LABS: BG BASE EXCESS 1.5 mmol/L (-2.0-2.0); BG CARBOXYHEMOGLOBIN 0.1 % (0.5-1.5); BG DEOXYHEMOGLOBIN 2.7 % (0.0-5.0); BG FRACTION INSPIRED OXYGEN 40; BG HCO3 ACT 25.7 mmol/L (22.0-26.0); BG METHEMOGLOBIN 0.3 % (0.0-1.5); BG OXYGEN SATURATION 97.3 % (92.0-98.5); BG OXYHEMOGLOBIN 96.9 % (94.0-97.0); BG PCO2 38.7 mmHg (35.0-45.0); BG PO2 97.7 mmHg (75.0-100.0); BG SAMPLE SITE RIGHT RADIAL; BG TIDAL VOLUME(mL) 500 mL; BG TOTAL HEMOGLOBIN 9.8 g/dL (12.0-18.0); BG VENT MODE VENT - A/C; BG VENT RATE 12 set
[2018-05-04] MEDS: THIAMINE HCL 100MG TABLET NG SCH (08:19)
[2018-05-04] MEDS: PANTOPRAZOLE SODIUM 40 MG/VIAL IV SCH (08:19)
[2018-05-04] MEDS: METOPROLOL TARTRATE 25MG TABLET PO SCH ×2 (08:20→21:52)
[2018-05-04] MEDS: RISPERIDONE 1MG TABLET NG SCH ×2 (08:20→21:52)
[2018-05-04] MEDS: ENOXAPARIN 40MG/0.4ML SYR SUBCUT SCH (08:27)
[2018-05-04] MEDS: METRONIDAZOLE 500 MG PREMIX 100 ML IV SCH (08:28)
[2018-05-04] MEDS: SODIUM CHLORIDE 0.45% 1,000 ML IV SCH ×2 (10:00→10:13)
[2018-05-04] MEDS ORDERED: INSULIN GLARGINE UD 100 UNITS/ML SYR SUBCUT SCH (10:00)
[2018-05-04] MEDS: DEXTROSE 5% WATER 1,000 ML IV SCH (11:37)
[2018-05-04] MEDS: MEROPENEM 1,000 MG in SODIUM CHLORIDE 0.9% 100 ML IV SCH (14:40)
[2018-05-04] MEDS: FENTANYL CITRATE/PF 500 MCG in SODIUM CHLORIDE 0.9% 40 ML IV PRN (16:05)
[2018-05-04] MEDS: LORAZEPAM 2MG/ML CPJ IV PRN ×2 (17:35→22:52)
[2018-05-04 20:04] LABS: CLARITY URINE CLOUDY (CLEAR); COLOR URINE YELLOW (YELLOW); KETONES URINE NEGATIVE (NEGATIVE); LEUKOCYTE ESTERASE URINE 2+ (NEGATIVE); NITRITE URINE NEGATIVE (NEGATIVE); OCCULT BLOOD URINE 3+ (NEGATIVE); PH URINE 5.5 (4.5-8.0); PROTEIN URINE 1+ (NEGATIVE); SPECIFIC GRAVITY URINE 1.015 (1.005-1.030); UROBILINOGEN URINE 0.2 E.U./dL (0.2-1.0)
[2018-05-04] MEDS: INSULIN GLARGINE UD 100 UNITS/ML SYR SUBCUT SCH (23:30)
[2018-05-05] VITALS (68 sets, daily range): BP systolic 112–189; BP diastolic 60–113
[2018-05-05] MEDS: FENTANYL CITRATE/PF 500 MCG in SODIUM CHLORIDE 0.9% 40 ML IV PRN ×2 (00:02→05:50)
[2018-05-05] MEDS: ACETYLCYSTEINE 100MG/ML 10% VIAL 4ML INH SCH ×3 (00:13→16:35)
[2018-05-05] MEDS: ALBUTEROL (0.083%) 2.5MG/3ML NEB HHN SCH ×6 (00:13→20:13)
[2018-05-05] MEDS: MEROPENEM 1,000 MG in SODIUM CHLORIDE 0.9% 100 ML IV SCH ×2 (01:24→13:11)
[2018-05-05] MEDS: DEXTROSE 5% WATER 1,000 ML IV SCH (02:44)
[2018-05-05] MEDS: BLOOD SUGAR DIAGNOSTIC STRIP TEST SCH ×4 (05:43→23:00)
[2018-05-05] MEDS: INSULIN LISPRO 100 UNITS/ML SUBCUT SCH ×4 (05:46→23:04)
[2018-05-05 06:15] LABS: BASOPHILS % 0.3 % (0.0-2.0); EOSINOPHILS % 0.9 % (0.0-5.0); HEMATOCRIT. 25.8 % (36.0-48.0); HEMOGLOBIN. 8.1 g/dL (12.0-16.0); LYMPHOCYTES % 10.1 % (20.0-50.0); MEAN CORPUSCULAR VOLUME 69.7 fL (81.0-99.0); MEAN PLATELET VOLUME 8.3 fl (7.4-10.4); MONOCYTES % 7.4 % (2.0-8.0); NEUTROPHILS % 81.3 % (40.0-76.0); PLATELET 211 x1000/uL (130-400)
[2018-05-05 07:43] LABS: CHLORIDE 106 mEq/L (98-107)
[2018-05-05 08:27] LABS: BG BASE EXCESS 1.7 mmol/L (-2.0-2.0); BG CARBOXYHEMOGLOBIN 1.4 % (0.5-1.5); BG DEOXYHEMOGLOBIN 2.9 % (0.0-5.0); BG FRACTION INSPIRED OXYGEN 40; BG HCO3 ACT 25.9 mmol/L (22.0-26.0); BG METHEMOGLOBIN 0.3 % (0.0-1.5); BG OXYHEMOGLOBIN 95.4 % (94.0-97.0); BG PCO2 38.9 mmHg (35.0-45.0); BG PH 7.441 (7.350-7.450); BG PO2 84.4 mmHg (75.0-100.0); BG SAMPLE SITE RIGHT RADIAL; BG TIDAL VOLUME(mL) 500 mL; BG TOTAL HEMOGLOBIN 8.5 g/dL (12.0-18.0); BG VENT MODE VENT - A/C; BG VENT RATE 12 set
[2018-05-05] MEDS: LINAGLIPTIN 5MG TABLET PO SCH (09:29)
[2018-05-05] MEDS: RISPERIDONE 1MG TABLET NG SCH ×2 (09:29→20:35)
[2018-05-05] MEDS: THIAMINE HCL 100MG TABLET NG SCH (09:29)
[2018-05-05] MEDS: PANTOPRAZOLE SODIUM 40 MG/VIAL IV SCH (09:29)
[2018-05-05] MEDS: METOPROLOL TARTRATE 25MG TABLET PO SCH ×2 (09:29→20:35)
[2018-05-05] MEDS: ENOXAPARIN 40MG/0.4ML SYR SUBCUT SCH (09:30)
[2018-05-05] MEDS: INSULIN GLARGINE UD 100 UNITS/ML SYR SUBCUT SCH ×2 (09:30→23:04)
[2018-05-05] MEDS: MORPHINE SULFATE 4 MG/ML CPJ (NOT FOR IM USE) IV PRN ×2 (10:47→21:05)
[2018-05-05 11:57] LABS: BG BASE EXCESS 4.7 mmol/L (-2.0-2.0); BG DEOXYHEMOGLOBIN 1.5 % (0.0-5.0); BG FRACTION INSPIRED OXYGEN 40; BG HCO3 ACT 28.6 mmol/L (22.0-26.0); BG METHEMOGLOBIN 0.2 % (0.0-1.5); BG OXYGEN SATURATION 98.5 % (92.0-98.5); BG OXYHEMOGLOBIN 97.3 % (94.0-97.0); BG PCO2 39.5 mmHg (35.0-45.0); BG PH 7.478 (7.350-7.450); BG PO2 112.2 mmHg (75.0-100.0); BG PRESSURE SUPPORT 8; BG SAMPLE SITE RIGHT RADIAL; BG TIDAL VOLUME(mL) 500 mL; BG TOTAL HEMOGLOBIN 8.8 g/dL (12.0-18.0); BG VENT MODE VENT - CPAP; BG VENT RATE 12 set
[2018-05-05] MEDS: LORAZEPAM 2MG/ML CPJ IV PRN ×2 (14:41→19:27)
[2018-05-05] MEDS: CLONAZEPAM 0.5MG TABLET PO SCH (20:35)
[2018-05-05] MEDS: HALOPERIDOL LACTATE 5MG/ML VIAL IM PRN (20:45)
[2018-05-06] VITALS (49 sets, daily range): BP systolic 104–197; BP diastolic 59–117
[2018-05-06] MEDS: ALBUTEROL (0.083%) 2.5MG/3ML NEB HHN SCH ×6 (00:06→21:02)
[2018-05-06] MEDS: ACETYLCYSTEINE 100MG/ML 10% VIAL 4ML INH SCH ×2 (00:07→07:51)
[2018-05-06] MEDS: MEROPENEM 1,000 MG in SODIUM CHLORIDE 0.9% 100 ML IV SCH ×4 (01:20→21:12)
[2018-05-06] MEDS: DEXTROSE 5% WATER 1,000 ML IV SCH (01:20)
[2018-05-06] MEDS: LORAZEPAM 2MG/ML CPJ IV PRN ×2 (05:06→12:45)
[2018-05-06 05:41] LABS: BASOPHILS % 0.2 % (0.0-2.0); EOSINOPHILS % 0.7 % (0.0-5.0); HEMATOCRIT. 23.7 % (36.0-48.0); HEMOGLOBIN. 7.7 g/dL (12.0-16.0); LYMPHOCYTES % 9.3 % (20.0-50.0); MEAN CORPUSCULAR HEMOGLOBIN 22.2 pg (28.0-32.0); MEAN CORPUSCULAR VOLUME 68.7 fL (81.0-99.0); MEAN PLATELET VOLUME 7.8 fl (7.4-10.4); MONOCYTES % 7.4 % (2.0-8.0); NEUTROPHILS % 82.4 % (40.0-76.0); PLATELET 254 x1000/uL (130-400); RED BLOOD CELL COUNT 3.45 mill/uL (4.2-5.4); RED CELL DISTRIBUTION WIDTH 14.9 % (11.6-14.6)
[2018-05-06 05:45] LABS: CHLORIDE 103 mEq/L (98-107)
[2018-05-06 05:56] LABS: PHOSPHORUS 3.7 mg/dL (2.5-4.9)
[2018-05-06] MEDS: BLOOD SUGAR DIAGNOSTIC STRIP TEST SCH ×4 (06:11→23:43)
[2018-05-06] MEDS: INSULIN LISPRO 100 UNITS/ML SUBCUT SCH ×4 (06:15→23:45)
[2018-05-06] MEDS: METOPROLOL TARTRATE 25MG TABLET PO SCH ×2 (08:31→20:38)
[2018-05-06] MEDS: RISPERIDONE 1MG TABLET NG SCH ×2 (08:31→20:38)
[2018-05-06] MEDS: THIAMINE HCL 100MG TABLET NG SCH (08:31)
[2018-05-06] MEDS: CLONAZEPAM 0.5MG TABLET PO SCH ×2 (08:31→16:09)
[2018-05-06] MEDS: HALOPERIDOL LACTATE 5MG/ML VIAL IM PRN ×2 (08:32→21:45)
[2018-05-06] MEDS: PANTOPRAZOLE SODIUM 40 MG/VIAL IV SCH (08:32)
[2018-05-06] MEDS: LINAGLIPTIN 5MG TABLET PO SCH (08:33)
[2018-05-06] MEDS: INSULIN GLARGINE UD 100 UNITS/ML SYR SUBCUT SCH ×2 (09:43→21:13)
[2018-05-06] MEDS: ENOXAPARIN 40MG/0.4ML SYR SUBCUT SCH (09:44)
[2018-05-06] MEDS: DEXT 5% WATER + KCL 20MEQ/L 1,000 ML IV SCH (12:18)
[2018-05-06 13:50] LABS: TOTAL IRON BINDING CAPACITY 125 ug/dL (250-450)
[2018-05-06] MEDS: CLONIDINE 0.1MG TABLET PO PRN ×2 (16:10→23:46)
[2018-05-06] MEDS: IRON SUCROSE COMPLEX 100 MG/5 ML ML IV SCH (19:47)
[2018-05-07] VITALS (45 sets, daily range): BP systolic 119–170; BP diastolic 50–104
[2018-05-07] MEDS: ALBUTEROL (0.083%) 2.5MG/3ML NEB HHN SCH ×5 (01:22→21:15)
[2018-05-07] MEDS: HYDRALAZINE 20MG/ML VIAL IV PRN (01:28)
[2018-05-07] MEDS: LORAZEPAM 2MG/ML CPJ IV PRN ×2 (02:09→13:51)
[2018-05-07 05:22] LABS: BASOPHILS % 0.2 % (0.0-2.0); EOSINOPHILS % 0.4 % (0.0-5.0); HEMATOCRIT. 25.2 % (36.0-48.0); HEMOGLOBIN. 8.1 g/dL (12.0-16.0); LYMPHOCYTES % 9.7 % (20.0-50.0); MEAN CORPUSCULAR VOLUME 68.8 fL (81.0-99.0); MEAN PLATELET VOLUME 7.5 fl (7.4-10.4); MONOCYTES % 6.9 % (2.0-8.0); NEUTROPHILS % 82.8 % (40.0-76.0); PLATELET 321 x1000/uL (130-400); RED BLOOD CELL COUNT 3.67 mill/uL (4.2-5.4); RED CELL DISTRIBUTION WIDTH 14.7 % (11.6-14.6)
[2018-05-07 05:29] LABS: CHLORIDE 102 mEq/L (98-107)
[2018-05-07 05:35] LABS: PHOSPHORUS 3.6 mg/dL (2.5-4.9)
[2018-05-07] MEDS: BLOOD SUGAR DIAGNOSTIC STRIP TEST SCH ×3 (05:46→17:51)
[2018-05-07] MEDS: INSULIN LISPRO 100 UNITS/ML SUBCUT SCH ×3 (05:47→18:00)
[2018-05-07] MEDS: MEROPENEM 1,000 MG in SODIUM CHLORIDE 0.9% 100 ML IV SCH ×3 (05:47→21:45)
[2018-05-07] MEDS ORDERED: POTASSIUM CHLORIDE 20MEQ/PACKET PO SCH (08:45)
[2018-05-07] MEDS: PANTOPRAZOLE SODIUM 40 MG/VIAL IV SCH (09:09)
[2018-05-07] MEDS: ENOXAPARIN 40MG/0.4ML SYR SUBCUT SCH (09:10)
[2018-05-07] MEDS ORDERED: KCL 20MEQ/100ML PREMIX 100 ML IV SCH (10:00)
[2018-05-07] MEDS: CLONAZEPAM 0.5MG TABLET PO SCH ×2 (10:32→17:00)
[2018-05-07] MEDS: RISPERIDONE 1MG TABLET NG SCH ×3 (10:32→21:39)
[2018-05-07] MEDS: FLUCONAZOLE 200MG TABLET PO SCH (10:33)
[2018-05-07] MEDS: METOPROLOL TARTRATE 25MG TABLET PO SCH ×3 (10:33→21:39)
[2018-05-07] MEDS: THIAMINE HCL 100MG TABLET NG SCH (10:34)
[2018-05-07] MEDS: DEXT 5% WATER + KCL 20MEQ/L 1,000 ML IV SCH (10:35)
[2018-05-07] MEDS: INSULIN GLARGINE UD 100 UNITS/ML SYR SUBCUT SCH ×2 (10:54→22:00)
[2018-05-07] MEDS: HALOPERIDOL LACTATE 5MG/ML VIAL IM PRN (15:26)
[2018-05-07] MEDS: IRON SUCROSE COMPLEX 100 MG/5 ML ML IV SCH (17:50)
[2018-05-07] MEDS: DEXTROSE 50% WATER 50ML SYRINGE IV PRN (18:06)
[2018-05-07] MEDS: ACETAMINOPHEN 325MG TABLET PO PRN (21:38)
[2018-05-07] MEDS ORDERED: ACETAMINOPHEN 650MG SUPP PR PRN (22:15)
[2018-05-08] VITALS (12 sets, daily range): BP systolic 113–157; BP diastolic 66–93
[2018-05-08] MEDS: BLOOD SUGAR DIAGNOSTIC STRIP TEST SCH ×4 (00:13→16:10)
[2018-05-08] MEDS: LORAZEPAM 2MG/ML CPJ IV PRN ×3 (00:20→20:50)
[2018-05-08] MEDS: ALBUTEROL (0.083%) 2.5MG/3ML NEB HHN SCH ×4 (01:56→12:14)
[2018-05-08] MEDS: DEXT 5% WATER + KCL 20MEQ/L 1,000 ML IV SCH (03:54)
[2018-05-08] MEDS: MEROPENEM 1,000 MG in SODIUM CHLORIDE 0.9% 100 ML IV SCH ×3 (06:07→22:57)
[2018-05-08] MEDS: INSULIN LISPRO 100 UNITS/ML SUBCUT SCH ×4 (06:09→16:45)
[2018-05-08 07:45] LABS: BASOPHILS % 0.3 % (0.0-2.0); EOSINOPHILS % 0.5 % (0.0-5.0); HEMATOCRIT. 25.6 % (36.0-48.0); HEMOGLOBIN. 8.3 g/dL (12.0-16.0); LYMPHOCYTES % 8.9 % (20.0-50.0); MEAN CORPUSCULAR HEMOGLOBIN 22.7 pg (28.0-32.0); MEAN CORPUSCULAR VOLUME 70.2 fL (81.0-99.0); MEAN PLATELET VOLUME 7.6 fl (7.4-10.4); MONOCYTES % 7.5 % (2.0-8.0); NEUTROPHILS % 82.8 % (40.0-76.0); PLATELET 339 x1000/uL (130-400); RED BLOOD CELL COUNT 3.65 mill/uL (4.2-5.4); RED CELL DISTRIBUTION WIDTH 15.1 % (11.6-14.6)
[2018-05-08 08:13] LABS: CHLORIDE 101 mEq/L (98-107)
[2018-05-08 08:20] LABS: PHOSPHORUS 3.7 mg/dL (2.5-4.9)
[2018-05-08] MEDS: ENOXAPARIN 40MG/0.4ML SYR SUBCUT SCH (08:24)
[2018-05-08] MEDS: PANTOPRAZOLE SODIUM 40 MG/VIAL IV SCH (08:26)
[2018-05-08] MEDS: RISPERIDONE 1MG TABLET NG SCH ×2 (09:00→20:50)
[2018-05-08] MEDS: CLONAZEPAM 0.5MG TABLET PO SCH ×2 (09:00→16:44)
[2018-05-08] MEDS: THIAMINE HCL 100MG TABLET NG SCH (09:00)
[2018-05-08] MEDS: FLUCONAZOLE 200MG TABLET PO SCH (10:18)
[2018-05-08] MEDS: METOPROLOL TARTRATE 25MG TABLET PO SCH ×2 (10:18→20:50)
[2018-05-08] MEDS: INSULIN GLARGINE UD 100 UNITS/ML SYR SUBCUT SCH ×2 (11:03→22:58)
[2018-05-08] MEDS: IRON SUCROSE COMPLEX 100 MG/5 ML ML IV SCH (15:34)
[2018-05-08 15:56] LABS: AMMONIA 16 uMol/L (<32)
[2018-05-09] VITALS: BP 138/92
[2018-05-09] MEDS: BLOOD SUGAR DIAGNOSTIC STRIP TEST SCH ×4 (00:34→18:30)
[2018-05-09] MEDS: LORAZEPAM 2MG/ML CPJ IV PRN ×2 (03:10→19:30)
[2018-05-09 04:00] VITALS: BP 156/88
[2018-05-09] MEDS: MEROPENEM 1,000 MG in SODIUM CHLORIDE 0.9% 100 ML IV SCH ×3 (05:52→21:30)
[2018-05-09] MEDS: INSULIN LISPRO 100 UNITS/ML SUBCUT SCH ×4 (05:56→18:35)
[2018-05-09 08:00] VITALS: BP 129/73
[2018-05-09 10:50] LABS: BASOPHILS % 0.3 % (0.0-2.0); EOSINOPHILS % 0.3 % (0.0-5.0); LYMPHOCYTES % 11.3 % (20.0-50.0); MEAN CORPUSCULAR HEMOGLOBIN 22.2 pg (28.0-32.0); MEAN CORPUSCULAR VOLUME 69.3 fL (81.0-99.0); MEAN PLATELET VOLUME 7.1 fl (7.4-10.4); MONOCYTES % 7.4 % (2.0-8.0); NEUTROPHILS % 80.7 % (40.0-76.0); PLATELET 425 x1000/uL (130-400); RED BLOOD CELL COUNT 3.61 mill/uL (4.2-5.4); RED CELL DISTRIBUTION WIDTH 14.5 % (11.6-14.6)
[2018-05-09] MEDS: FLUCONAZOLE 200MG TABLET PO SCH (10:56)
[2018-05-09] MEDS: METOPROLOL TARTRATE 25MG TABLET PO SCH ×2 (10:56→20:52)
[2018-05-09] MEDS: THIAMINE HCL 100MG TABLET NG SCH (10:56)
[2018-05-09] MEDS: RISPERIDONE 1MG TABLET NG SCH (10:57)
[2018-05-09] MEDS: PANTOPRAZOLE SODIUM 40 MG/VIAL IV SCH (10:57)
[2018-05-09] MEDS: INSULIN GLARGINE UD 100 UNITS/ML SYR SUBCUT SCH (10:59)
[2018-05-09] MEDS: CLONAZEPAM 0.5MG TABLET PO SCH ×2 (11:04→18:30)
[2018-05-09] MEDS: ENOXAPARIN 40MG/0.4ML SYR SUBCUT SCH (11:04)
[2018-05-09 11:30] LABS: CHLORIDE 104 mEq/L (98-107)
[2018-05-09 12:00] VITALS: BP 131/65
[2018-05-09 16:00] VITALS: BP 142/75
[2018-05-09] MEDS ORDERED: LORAZEPAM 2MG/ML CPJ IV PRN (18:00)
[2018-05-09] MEDS: FERROUS SULFATE 325MG TABLET PO SCH (18:31)
[2018-05-09 20:00] VITALS: BP 158/86
[2018-05-09] MEDS: FAMOTIDINE 20MG TABLET PO SCH (20:52)
[2018-05-09] MEDS: RISPERIDONE 1MG TABLET PO SCH (20:52)
[2018-05-09] MEDS ORDERED: INSULIN GLARGINE UD 100 UNITS/ML SYR SUBCUT SCH (22:00)
[2018-05-10] VITALS: BP 155/70
[2018-05-10] MEDS: BLOOD SUGAR DIAGNOSTIC STRIP TEST SCH ×4 (01:30→18:01)
[2018-05-10] MEDS: INSULIN LISPRO 100 UNITS/ML SUBCUT SCH ×4 (01:30→18:00)
[2018-05-10] MEDS: DEXTROSE 50% WATER 50ML SYRINGE IV PRN (01:37)
[2018-05-10 04:00] VITALS: BP 161/83
[2018-05-10] MEDS: CLONIDINE 0.1MG TABLET PO PRN (04:14)
[2018-05-10 05:55] LABS: BASOPHILS % 0.3 % (0.0-2.0); EOSINOPHILS % 0.4 % (0.0-5.0); HEMATOCRIT. 24.5 % (36.0-48.0); HEMOGLOBIN. 7.9 g/dL (12.0-16.0); LYMPHOCYTES % 12.7 % (20.0-50.0); MEAN CORPUSCULAR HEMOGLOBIN 22.9 pg (28.0-32.0); MEAN CORPUSCULAR VOLUME 70.6 fL (81.0-99.0); MEAN PLATELET VOLUME 7.3 fl (7.4-10.4); MONOCYTES % 8.8 % (2.0-8.0); NEUTROPHILS % 77.8 % (40.0-76.0); PLATELET 484 x1000/uL (130-400); RED BLOOD CELL COUNT 3.47 mill/uL (4.2-5.4)
[2018-05-10 06:13] LABS: CHLORIDE 106 mEq/L (98-107)
[2018-05-10 06:21] LABS: PHOSPHORUS 3.5 mg/dL (2.5-4.9)
[2018-05-10 06:23] LABS: CREATINE KINASE 39 IU/L (26-192)
[2018-05-10] MEDS: MEROPENEM 1,000 MG in SODIUM CHLORIDE 0.9% 100 ML IV SCH ×3 (06:44→21:48)
[2018-05-10 08:00] VITALS: BP_SYST 119; BP_SYST 155; BP_DIAS 66; BP_DIAS 88
[2018-05-10] MEDS: FERROUS SULFATE 325MG TABLET PO SCH ×3 (08:24→17:50)
[2018-05-10] MEDS: ENOXAPARIN 40MG/0.4ML SYR SUBCUT SCH (09:00)
[2018-05-10] MEDS: THIAMINE HCL 100MG TABLET NG SCH (10:28)
[2018-05-10] MEDS: FLUCONAZOLE 200MG TABLET PO SCH (10:28)
[2018-05-10] MEDS: LINAGLIPTIN 5MG TABLET PO SCH (10:29)
[2018-05-10] MEDS: RISPERIDONE 1MG TABLET PO SCH ×2 (10:29→20:41)
[2018-05-10] MEDS: LOSARTAN POTASSIUM 25 MG TABLET PO SCH (11:05)
[2018-05-10] MEDS: METOPROLOL TARTRATE 25MG TABLET PO SCH ×2 (11:06→20:47)
[2018-05-10 12:00] VITALS: BP 119/66
[2018-05-10] MEDS: LORAZEPAM 2MG/ML CPJ IV PRN (13:28)
[2018-05-10] MEDS: NICOTINE 7MG PATCH TD SCH (14:50)
[2018-05-10 16:00] VITALS: BP 119/60
[2018-05-10 20:00] VITALS: BP 116/67
[2018-05-10] MEDS: FAMOTIDINE 20MG TABLET PO SCH (20:40)
[2018-05-10] MEDS: CLONAZEPAM 0.5MG TABLET PO SCH (20:41)
[2018-05-10] MEDS: INSULIN GLARGINE UD 100 UNITS/ML SYR SUBCUT SCH (22:11)
[2018-05-11] VITALS: BP 126/68
[2018-05-11] MEDS: BLOOD SUGAR DIAGNOSTIC STRIP TEST SCH ×6 (00:44→20:53)
[2018-05-11] MEDS: INSULIN LISPRO 100 UNITS/ML SUBCUT SCH ×4 (00:52→17:46)
[2018-05-11 04:00] VITALS: BP 140/71
[2018-05-11] MEDS: MEROPENEM 1,000 MG in SODIUM CHLORIDE 0.9% 100 ML IV SCH ×2 (06:22→14:05)
[2018-05-11 08:02] VITALS: BP 134/67
[2018-05-11] MEDS: FERROUS SULFATE 325MG TABLET PO SCH ×3 (09:14→17:40)
[2018-05-11] MEDS: LOSARTAN POTASSIUM 25 MG TABLET PO SCH (09:14)
[2018-05-11] MEDS: LINAGLIPTIN 5MG TABLET PO SCH (09:14)
[2018-05-11] MEDS: FLUCONAZOLE 200MG TABLET PO SCH (09:14)
[2018-05-11] MEDS: THIAMINE HCL 100MG TABLET NG SCH (09:14)
[2018-05-11] MEDS: RISPERIDONE 1MG TABLET PO SCH ×2 (09:14→20:25)
[2018-05-11] MEDS: METOPROLOL TARTRATE 25MG TABLET PO SCH ×2 (09:14→20:21)
[2018-05-11] MEDS: ENOXAPARIN 40MG/0.4ML SYR SUBCUT SCH (09:15)
[2018-05-11] MEDS: NICOTINE 7MG PATCH TD SCH (09:15)
[2018-05-11 12:00] VITALS: BP 109/64
[2018-05-11 12:13] LABS: BASOPHILS % 0.8 % (0.0-2.0); EOSINOPHILS % 0.8 % (0.0-5.0); HEMATOCRIT. 23.1 % (36.0-48.0); HEMOGLOBIN. 7.4 g/dL (12.0-16.0); LYMPHOCYTES % 13.3 % (20.0-50.0); MEAN CORPUSCULAR HEMOGLOBIN 22.6 pg (28.0-32.0); MEAN PLATELET VOLUME 7.4 fl (7.4-10.4); MONOCYTES % 10.1 % (2.0-8.0); PLATELET 486 x1000/uL (130-400); RED BLOOD CELL COUNT 3.26 mill/uL (4.2-5.4); RED CELL DISTRIBUTION WIDTH 14.8 % (11.6-14.6)
[2018-05-11] MEDS: LORAZEPAM 2MG/ML CPJ IV PRN ×2 (13:02→21:43)
[2018-05-11 16:00] VITALS: BP 123/72
[2018-05-11] MEDS ORDERED: LEVOFLOXACIN 500MG TABLET PO NR (16:00)
[2018-05-11 20:00] VITALS: BP 128/62
[2018-05-11] MEDS: CLONAZEPAM 0.5MG TABLET PO SCH (20:25)
[2018-05-11] MEDS: FAMOTIDINE 20MG TABLET PO SCH (20:25)
[2018-05-11] MEDS: INSULIN GLARGINE UD 100 UNITS/ML SYR SUBCUT SCH (21:06)
[2018-05-12] VITALS: BP 118/69
[2018-05-12 04:00] VITALS: BP 162/72
[2018-05-12] MEDS: INSULIN LISPRO 100 UNITS/ML SUBCUT SCH ×3 (06:30→17:20)
[2018-05-12] MEDS: BLOOD SUGAR DIAGNOSTIC STRIP TEST SCH ×3 (06:30→17:20)
[2018-05-12 08:00] VITALS: BP 113/76
[2018-05-12] MEDS: NICOTINE 7MG PATCH TD SCH (08:45)
[2018-05-12] MEDS: FERROUS SULFATE 325MG TABLET PO SCH ×3 (08:46→17:34)
[2018-05-12] MEDS: LINAGLIPTIN 5MG TABLET PO SCH (08:46)
[2018-05-12] MEDS: LOSARTAN POTASSIUM 25 MG TABLET PO SCH (08:46)
[2018-05-12] MEDS: RISPERIDONE 1MG TABLET PO SCH (08:46)
[2018-05-12] MEDS: FLUCONAZOLE 200MG TABLET PO SCH (08:46)
[2018-05-12] MEDS: ENOXAPARIN 40MG/0.4ML SYR SUBCUT SCH (08:46)
[2018-05-12] MEDS: THIAMINE HCL 100MG TABLET NG SCH (08:46)
[2018-05-12] MEDS: METOPROLOL TARTRATE 25MG TABLET PO SCH (09:00)
[2018-05-12] MEDS ORDERED: LORAZEPAM 2MG/ML CPJ IV PRN (10:15)
[2018-05-12 10:47] LABS: BASOPHILS % 0.3 % (0.0-2.0); EOSINOPHILS % 0.5 % (0.0-5.0); HEMATOCRIT. 23.6 % (36.0-48.0); HEMOGLOBIN. 7.4 g/dL (12.0-16.0); LYMPHOCYTES % 12.7 % (20.0-50.0); MEAN CORPUSCULAR HEMOGLOBIN 22.6 pg (28.0-32.0); MEAN CORPUSCULAR VOLUME 71.6 fL (81.0-99.0); MEAN PLATELET VOLUME 7.3 fl (7.4-10.4); MONOCYTES % 6.7 % (2.0-8.0); NEUTROPHILS % 79.8 % (40.0-76.0); PLATELET 565 x1000/uL (130-400); RED BLOOD CELL COUNT 3.29 mill/uL (4.2-5.4); RED CELL DISTRIBUTION WIDTH 15.5 % (11.6-14.6)
[2018-05-12] MEDS ORDERED: LEVOFLOXACIN 500MG TABLET PO SCH (11:00)
[2018-05-12 11:12] LABS: CHLORIDE 98 mEq/L (98-107)
[2018-05-12 12:00] VITALS: BP 125/78
[2018-05-12 16:00] VITALS: BP 131/78
[2018-05-12 17:56] VITALS: BP 131/78
[2018-05-12] MEDS ORDERED: VANCOMYCIN HCL 1000 MG/20 ML ORAL PO SCH (18:00)
[2018-05-12] MEDS ORDERED: CLONAZEPAM 0.5MG TABLET PO SCH (21:00)
== END 2018-05-12 20:26 | disposition home or self-care (01) | DRG 720 ==
LOC: ER 13:28 → MICUSO 17:00 → ENRESERV 20:22 → 5EST 04-28 23:30 → MICUSO 05-01 08:20 → 3WST 05-07 20:16 → 6EST 05-09 01:42 → 3WST 05-09 01:45 → 6EST 05-09 02:49
PROVIDERS: ADMIT Internal Medicine; ATTEND Internal Medicine
PROC: 5A1955Z Respiratory Ventilation, Greater than 96 Consecutive Hours (ICD-10-PCS; principal; 2018-05-01)
PROC: 0BH17EZ Insertion of Endotracheal Airway into Trachea, Via Natural or Artificial Opening (ICD-10-PCS; 2018-05-01)
PROC: 02HV33Z Insertion of Infusion Device into Superior Vena Cava, Percutaneous Approach (ICD-10-PCS; 2018-05-02)
PROC: B548ZZA Ultrasonography of Superior Vena Cava, Guidance (ICD-10-PCS; 2018-05-02)
DX: A41.51 Sepsis due to Escherichia coli [E. coli] (principal); J96.02 Acute respiratory failure with hypercapnia; J69.0 Pneumonitis due to inhalation of food and vomit; G92 Toxic encephalopathy; E43 Unspecified severe protein-calorie malnutrition; E11.10 Type 2 diabetes mellitus with ketoacidosis without coma; N17.9 Acute kidney failure, unspecified; D69.6 Thrombocytopenia, unspecified; E86.0 Dehydration; E87.0 Hyperosmolality and hypernatremia; I10 Essential (primary) hypertension; E87.5 Hyperkalemia; N12 Tubulo-interstitial nephritis, not specified as acute or chronic; E78.1 Pure hyperglyceridemia; E78.5 Hyperlipidemia, unspecified; I95.9 Hypotension, unspecified; D64.9 Anemia, unspecified; E83.39 Other disorders of phosphorus metabolism; E87.6 Hypokalemia; Z78.1 Physical restraint status; F05 Delirium due to known physiological condition; E83.42 Hypomagnesemia; F31.9 Bipolar disorder, unspecified; F20.9 Schizophrenia, unspecified; Z91.81 History of falling; Z79.4 Long term (current) use of insulin; Z91.19 Patient's noncompliance with other medical treatment and regimen; Z68.24 Body mass index [BMI] 24.0-24.9, adult; Z79.84 Long term (current) use of oral hypoglycemic drugs; Z79.899 Other long term (current) drug therapy
CPT/HCPCS: 31500; 36415; 36569; 36600; 70450; 71045; 74176; 76937; 78580; 80048; 80053; 80170; 80305; 81003; 82010; 82140; 82375; 82550; 82805; 82962; 83540; 83550; 83605; 83690; 83735; 84100; 84439; 84443; 84478; 85025; 85379; 85610; 87040; 87070; 87077; 87086; 87186; 92610; 93005; 93306; 93970; 94002; 94003; 94640; 96361; 96365; 96366; 96367; 96375; 97116; 97163; 97166; 97530; 99285; A4216; A6261; C1725; C1893; C9113; G0482; J0360; J0690; J0692; J1200; J1580; J1630; J1650; J1815; J1940; J2060; J2185; J2250; J2270; J2405; J2543; J2704; J3010; J3370; J3411; J3475; J3480; J3490; J7030; J7040; J7050; J7060; J7070; J7608; J7611; J7620; A4315

== ENCOUNTER 2019-02-05 09:39 | Emergency (ER) | payer MEDICAID ==
[~2019-02-05] VITALS: Ht 162.6 cm; Wt 59.0 kg
[~2019-02-05 09:39] MED LIST changes: +METF-416 PO; -METF10004 PO
[2019-02-05] MEDS ORDERED: BACITRACIN ZINC OINT UDPKT TOP ONE (11:45)
[2019-02-05] MEDS ORDERED: LIDOCAINE HCL/PF 1% 10 MG/ML 5ML VIAL IJ ONE (11:45)
[2019-02-05 13:22] VITALS: BP 148/89
[2019-02-05 13:24] LABS: CLARITY URINE CLEAR (CLEAR); COLOR URINE YELLOW (YELLOW); KETONES URINE NEGATIVE (NEGATIVE); LEUKOCYTE ESTERASE URINE TRACE (NEGATIVE); NITRITE URINE POSITIVE (NEGATIVE); OCCULT BLOOD URINE 1+ (NEGATIVE); PH URINE 5.5 (4.5-8.0); PROTEIN URINE 1+ (NEGATIVE); SPECIFIC GRAVITY URINE 1.016 (1.005-1.030); UROBILINOGEN URINE 0.2 E.U./dL (0.2-1.0)
== END 2019-02-05 13:44 | disposition home or self-care (01) ==
LOC: ER 10:58
DX: L02.412 Cutaneous abscess of left axilla (principal); N73.9 Female pelvic inflammatory disease, unspecified; N39.0 Urinary tract infection, site not specified; I10 Essential (primary) hypertension; E11.9 Type 2 diabetes mellitus without complications; F17.210 Nicotine dependence, cigarettes, uncomplicated; Z79.4 Long term (current) use of insulin
CPT/HCPCS: 10060; 81003; 87077; 87086; 87186; 99283; J3490

== ENCOUNTER 2019-08-17 06:42 | Emergency (ER) | payer MEDICAID ==
[~2019-08-17] VITALS: Ht 162.6 cm; Wt 67.0 kg
[~2019-08-17 06:42] MED LIST changes: -OXYB5TAB11 PO; +OXYB5TAB16 PO
[2019-08-17] MEDS ORDERED: ALBUTEROL (0.083%) 2.5MG/3ML NEB HHN STA (08:23)
[2019-08-17] MEDS ORDERED: IPRATROPIUM BROMIDE (0.02%) 0.5MG/2.5ML NEB HHN STA (08:23)
[2019-08-17 08:24] LABS: CLARITY URINE CLEAR (CLEAR); COLOR URINE YELLOW (YELLOW); KETONES URINE NEGATIVE (NEGATIVE); LEUKOCYTE ESTERASE URINE NEGATIVE (NEGATIVE); NITRITE URINE POSITIVE (NEGATIVE); OCCULT BLOOD URINE 2+ (NEGATIVE); PH URINE 5.5 (4.5-8.0); PROTEIN URINE 2+ (NEGATIVE); SPECIFIC GRAVITY URINE 1.026 (1.005-1.030); UROBILINOGEN URINE 0.2 E.U./dL (0.2-1.0)
[2019-08-17 09:41] VITALS: BP 168/72
== END 2019-08-17 09:41 | disposition home or self-care (01) ==
LOC: ER 06:42
DX: N39.0 Urinary tract infection, site not specified (principal); J06.9 Acute upper respiratory infection, unspecified; E11.9 Type 2 diabetes mellitus without complications; I10 Essential (primary) hypertension; Z79.899 Other long term (current) drug therapy; Z79.84 Long term (current) use of oral hypoglycemic drugs
CPT/HCPCS: 71045; 81003; 87086; 87186; 87804; 94640; 99284; J7611; Z7610

== ENCOUNTER 2019-10-30 13:06 | Emergency (ER) | payer MEDICAID ==
[~2019-10-30] VITALS: Ht 162.6 cm; Wt 61.2 kg
[~2019-10-30 13:06] MED LIST changes: -MEGE40TA27 *; +MEGE40TA5 *
[2019-10-30 14:11] LABS: CLARITY URINE CLOUDY (CLEAR); COLOR URINE YELLOW (YELLOW); KETONES URINE NEGATIVE (NEGATIVE); LEUKOCYTE ESTERASE URINE 2+ (NEGATIVE); NITRITE URINE NEGATIVE (NEGATIVE); OCCULT BLOOD URINE 1+ (NEGATIVE); PROTEIN URINE 2+ (NEGATIVE); SPECIFIC GRAVITY URINE 1.018 (1.005-1.030); UROBILINOGEN URINE 0.2 E.U./dL (0.2-1.0)
[2019-10-30 15:12] VITALS: BP 146/84
== END 2019-10-30 15:13 | disposition home or self-care (01) ==
LOC: ER 13:06
DX: N39.0 Urinary tract infection, site not specified (principal); R05 Cough; E11.9 Type 2 diabetes mellitus without complications; I10 Essential (primary) hypertension
CPT/HCPCS: 81003; 87077; 87186; 99283

== ENCOUNTER 2020-01-15 21:14 | Emergency (ER) | payer MEDICAID ==
[~2020-01-15] VITALS: Ht 160 cm; Wt 65.3 kg
[2020-01-15 22:47] LABS: CLARITY URINE CLEAR (CLEAR); COLOR URINE YELLOW (YELLOW); KETONES URINE NEGATIVE (NEGATIVE); LEUKOCYTE ESTERASE URINE TRACE (NEGATIVE); NITRITE URINE NEGATIVE (NEGATIVE); OCCULT BLOOD URINE 1+ (NEGATIVE); PROTEIN URINE 1+ (NEGATIVE); SPECIFIC GRAVITY URINE 1.026 (1.005-1.030); UROBILINOGEN URINE 0.2 E.U./dL (0.2-1.0)
[2020-01-15 23:12] VITALS: BP 172/98
[2020-01-16] MEDS ORDERED: FLUCONAZOLE 100MG TABLET PO ONE (00:15)
[2020-01-16] MEDS ORDERED: FLUCONAZOLE 150MG TABLET PO SCH (00:30)
== END 2020-01-16 01:11 | disposition home or self-care (01) ==
LOC: ER 21:14
DX: N39.0 Urinary tract infection, site not specified (principal); E11.9 Type 2 diabetes mellitus without complications; Z79.84 Long term (current) use of oral hypoglycemic drugs
CPT/HCPCS: 81003; 87077; 87186; 99283

== ENCOUNTER 2020-04-21 12:38 | Emergency (ER) | payer MEDICAID ==
[~2020-04-21] VITALS: Ht 162.6 cm; Wt 58.0 kg
[2020-04-21 12:43] VITALS: BP 126/99
[2020-04-21 14:44] LABS: CLARITY URINE CLEAR (CLEAR); COLOR URINE YELLOW (YELLOW); KETONES URINE NEGATIVE (NEGATIVE); LEUKOCYTE ESTERASE URINE NEGATIVE (NEGATIVE); NITRITE URINE NEGATIVE (NEGATIVE); OCCULT BLOOD URINE 1+ (NEGATIVE); PROTEIN URINE 1+ (NEGATIVE); UROBILINOGEN URINE 0.2 E.U./dL (0.2-1.0)
== END 2020-04-21 15:11 | disposition home or self-care (01) ==
LOC: ER 12:47
DX: B37.49 Other urogenital candidiasis (principal); R03.0 Elevated blood-pressure reading, without diagnosis of hypertension; E11.9 Type 2 diabetes mellitus without complications; Z79.4 Long term (current) use of insulin; Z79.84 Long term (current) use of oral hypoglycemic drugs; F31.9 Bipolar disorder, unspecified; Z79.899 Other long term (current) drug therapy
CPT/HCPCS: 81003; 87077; 87186; 99283

== ENCOUNTER 2020-05-06 13:23 | Emergency (ER) | payer MEDICAID ==
[~2020-05-06] VITALS: Ht 162.6 cm; Wt 68.0 kg
[2020-05-06 13:37] VITALS: BP 139/84
[2020-05-06] MEDS ORDERED: LIDOCAINE HCL/PF 1% 10 MG/ML 5ML VIAL IJ ONE (15:00)
[2020-05-06] MEDS ORDERED: BACITRACIN ZINC OINT UDPKT TOP ONE (15:00)
[2020-05-06] MEDS ORDERED: IBUPROFEN 600MG TABLET PO ONE (15:00)
[2020-05-06] MEDS ORDERED: FLUCONAZOLE 100MG TABLET PO ONE (15:30)
[2020-05-06] MEDS ORDERED: FLUCONAZOLE 150MG TABLET PO NR (15:30)
== END 2020-05-06 15:55 | disposition home or self-care (01) ==
LOC: ER 15:02
DX: B37.9 Candidiasis, unspecified (principal); L02.411 Cutaneous abscess of right axilla; F31.9 Bipolar disorder, unspecified; E11.9 Type 2 diabetes mellitus without complications; F20.9 Schizophrenia, unspecified; Z79.899 Other long term (current) drug therapy
CPT/HCPCS: 10060; 99284; J3490

== ENCOUNTER 2020-11-21 19:30 | Emergency (ER) | payer MEDICAID ==
[~2020-11-21] VITALS: Ht 157.5 cm; Wt 58.4 kg
[2020-11-21] MEDS ORDERED: SODIUM CHLORIDE 0.9% 1,000 ML IV ONE (23:15)
[2020-11-21 23:44] LABS: BASOPHILS % 0.7 % (0.0-2.0); EOSINOPHILS % 0.1 % (0.0-5.0); HEMATOCRIT. 38.4 % (36.0-48.0); HEMOGLOBIN. 12.6 g/dL (12.0-16.0); LYMPHOCYTES % 24.7 % (20.0-50.0); MEAN CORPUSCULAR HEMOGLOBIN 22.9 pg (28.0-32.0); MEAN CORPUSCULAR VOLUME 69.8 fL (81.0-99.0); MEAN PLATELET VOLUME 8.9 fl (7.4-10.4); MONOCYTES % 9.4 % (2.0-8.0); NEUTROPHILS % 65.1 % (40.0-76.0); PLATELET 243 x1000/uL (130-400)
[2020-11-22 00:10] LABS: PLATELET ESTIMATE NORMAL
[2020-11-22 00:35] LABS: CHLORIDE 101 mEq/L (98-107)
[2020-11-22 01:28] LABS: CLARITY URINE CLOUDY (CLEAR); COLOR URINE YELLOW (YELLOW); KETONES URINE NEGATIVE (NEGATIVE); LEUKOCYTE ESTERASE URINE NEGATIVE (NEGATIVE); NITRITE URINE POSITIVE (NEGATIVE); OCCULT BLOOD URINE 2+ (NEGATIVE); PH URINE 5.5 (4.5-8.0); PROTEIN URINE 4+ (NEGATIVE); SPECIFIC GRAVITY URINE 1.029 (1.005-1.030); UROBILINOGEN URINE 0.2 E.U./dL (0.2-1.0)
[2020-11-22] MEDS ORDERED: CEPH500C2 MT (03:36)
[2020-11-22] MEDS ORDERED: ONDA4TAB5 MT (03:36)
[2020-11-22 04:20] VITALS: BP 174/89
== END 2020-11-22 04:35 | disposition home or self-care (01) ==
LOC: ER 19:30
DX: K52.9 Noninfective gastroenteritis and colitis, unspecified (principal); N39.0 Urinary tract infection, site not specified; K58.9 Irritable bowel syndrome, unspecified; E11.9 Type 2 diabetes mellitus without complications; Z87.891 Personal history of nicotine dependence; Z79.4 Long term (current) use of insulin
CPT/HCPCS: 36415; 71045; 74176; 80053; 81003; 83605; 83690; 85025; 87077; 87086; 87186; 93005; 96360; 99285; J7030